=== PATIENT | female | born 1950 | race Two or more races ===

== ENCOUNTER 2021-02-28 07:27 | Emergency (ER) | payer OTHER ==
[2021-02-28 08:09] VITALS: BP 128/80; PULSE 78; TEMP 97.8; BMI 32.9
[2021-02-28] MEDS ORDERED: ACETAMINOPHEN 500 MG TABLET (FP) PO ONE (08:58)
[2021-02-28] MEDS ORDERED: ACETAMINOPHEN 500 MG TABLET (FP) ONE (09:09)
== END 2021-02-28 10:00 | disposition home or self-care (01) ==
LOC: JER 07:27
DX: S09.90XA Unspecified injury of head, initial encounter (principal)
CPT/HCPCS: 70450-TC; 73562-TC-LT-FY; 99284-25